=== PATIENT | male | born 1960 | race Caucasian/White ===

== ENCOUNTER → 2017-01-26 | Outpatient (CLI) | payer MEDICAID ==
[~2017-01-26] VITALS: Ht 172.7 cm; Wt 92.5 kg
[~2017-01-26] MED LIST: ALAVERT10 M3 PO; CITALOPRAM HBR40 M1 PO; HUMAPEN LUXURA1 EACH SUBQ; HYDROXYZINE HCL25 M1 PO; JANUVIA PO; LIPITOR PO; LISINOPRIL PO; METFORMIN HCL500 M3 PO; TOPROL XL PO; TRAZODONE HCL100 MG PO
[2017-01-26 10:25] LABS: HEMATOCRIT 44.5 % (38.0-50.0); HEMOGLOBIN 14.9 gm/dL (13.0-16.0)
== END | disposition home or self-care (01) ==
LOC: CSSDAY 09:30
PROVIDERS: Specialist
DX: E83.111 Hemochromatosis due to repeated red blood cell transfusions (principal)
CPT/HCPCS: 36415; 85014; 85018; 99195; G0463